=== PATIENT | female | born 1955 | race Caucasian/White ===

== ENCOUNTER → 2016-12-27 08:07 | Day surgery (SDC) | payer OTHER ==
--- NOTE | 2016-12-17 19:56 | HP ---
HISTORY AND PHYSICAL: DATE OF SURGERY: 12/27/16 PROCEDURE: Hardware removal, right foot. HISTORY OF PRESENT ILLNESS: Ms. Lord is a 61-year-old female who underwent an ORIF for a Lisfranc injury of the right foot. She has pain around the insertion site with a screw and has elected to p roceed with the hardware removal of the right foot. PAST MEDICAL HISTORY: She denies. PAST SURGICAL HISTORY: ORIF of the right foot, hernia repair, tubal ligation, tonsillectomy. CURRENT MEDICATIONS: 1. Mobic. 2. Xanax. 3. Lexapro. 4. Lysine. 5. Multivitamin. ALLERGIES: PENICILLIN. FAMILY HISTORY: Heart disease; lung, brain, and prostate cancer. SOCIAL HISTORY: She is a 61-year-old female. She lives with her . She works at [employer]. She smoked for 20 years, but quit 10 years ago. She does use occasional marijuana. REVIEW OF SYSTEMS: A complete 14-point review of systems was reviewed with the patient, all was neg ative or noncontributory. PHYSICAL EXAMINATION GENERAL: She is well developed, well nourished, in no acute distress. VITAL SIGNS: She stands 5 feet 5 inches tall, weighs 150 pounds, her blood pressure is 130/82, her h eart rate is 59. HEENT: She is normocephalic, atraumatic. NECK: Supple. No palpable lymph nodes. Trachea is midline. PULMONARY: The lungs are clear to auscultation bilaterally. No wheezes, rhonchi, or rales. CARDIO: Regular rate and rhythm. Strong S1, S2. No murmurs, gallops, or rubs. No peripheral edema . ABDOMEN: Soft, nontender, and nondistended. MUSCULOSKELETAL: Right lower extremity, the skin is intact. She has some tenderness over the inser tion site of the screw of the right foot. She has good capillary refill. 2+ dorsalis pedis pulses, intact sensation and her lower extremity muscle group strengths are intact at 5/5. NEUROLOGIC: She is alert and oriented x3. Cranial nerves II through XII are intact. ASSESSMENT AND PLAN: Ms. Lord is a 61-year-old female with complaints of right foot pain. She u nderwent an ORIF of the right foot for a Lisfranc injury. She has elected to proceed with hardware removal of the right foot. The surgery is scheduled for 12/27/[address] Vickers. She will see him back 10 to 14 days after the surgery. FER OROZCO [id number]/[facility] #: [id number]
[~2016-12-27 08:07] MED LIST: Buffered Lidocaine 1% SYR 3ML* 3 ML/SYR SYRINGE INTRADERM ONE; Bupivacaine 0.5% SDV PF* 30 ML VIAL ONE; Clindamycin 900 MG IVPREMIX(* 900 MG/50 ML SDV IV ONE; Midazolam* 1 MG/ML 5 ML VIAL (5 MG) ONE; Propofol* 10 MG/ML 20 ML BTL IV PUSH ONE; fentaNYL* 50 MCG/ML 2 ML VIAL (100 MCG VIAL) ONE
[2016-12-27 12:23] VITALS: BP 135/80
--- NOTE | 2016-12-27 23:11 | RAD ---
CPT II Codes: 6045F INDICATION: Hardware removal from the right foot Fluoroscopic services provided for referring physician. One spot image demonstrates localization of the syndesmosis screw between the first cuneiform and second metatarsal. 7.8 seconds of fluoroscopy time was used. IMPRESSION: Fluoroscopic services provided for referring physician.
--- NOTE | 2016-12-27 23:29 | OP ---
DATE OF OPERATION: 12/27/16 [facility] DATE OF : 55 SURGEON: Swapnil Vickers MD ECONOMIC SPECIALIST: Christie Barakat PA-C ANESTHESIOLOGIST: Emanuel Grayson MD ANESTHESIA: MAC PRE-OP DIAGNOSIS: Painful hardware, right mid foot, previous Lisfranc screw fixation. POST-OP DIAGNOSIS: Painful hardware, right mid foot, previous Lisfranc screw fixation. OPERATIVE PROCEDURE: Removal of screw, right mid foot. DESCRIPTION OF PROCEDURE: The patient was taken to the operating where a 1 cm longitudinal incision was made over the previous wound. In the mid portion of the wound, we located the head of the cortical screw, which was removed with a small fragment screw driver messenger. We then irrigated thoroughly closing with Vicryl and a small nylon suture and a compression dressing applied. [id number]/[facility] #: [id number] MTDD
== END | disposition home or self-care (01) ==
LOC: OR 08:07
PROVIDERS: ATTEND Orthopaedic Surgery
DX: T84.84XA Pain due to internal orthopedic prosthetic devices, implants and grafts, initial encounter (principal); Y83.1 Surgical operation with implant of artificial internal device as the cause of abnormal reaction of the patient, or of later complication, without mention of misadventure at the time of the procedure; S92.811S Other fracture of right foot, sequela; X58.XXXS Exposure to other specified factors, sequela; Y92.9 Unspecified place or not applicable
CPT/HCPCS: 76000; 88300; J2250; J2704; J3010

== ENCOUNTER 2017-04-22 14:48 | Emergency (ER) | payer OTHER ==
[2017-04-22 14:57] VITALS: BP 155/90
--- NOTE | 2017-04-22 15:53 | UC ---
Skin Complaint HPI - HPI Summary HPI Summary: Started getting raised itchy blistering rash on arms about a week ago after mowing the lawn. Also sleeps holding outdoor cat in her arms, wonders if the cat has been bringing something in. Some patches developing on legs, keeps getting new areas after 1 week. Very itchy, worried about spreading rash to other people. - History of Current Complaint Chief Complaint: UCRas Time Seen by Provider: 04/22/17 15:18 Stated Complaint: RASH Hx Obtained From: Patient ?: No Onset/Duration: Gradual Onset, Lasting Days Skin Exposure Onset/Duration: Days Ago Timing: Constant Onset Severity: Mild Current Severity: Moderate Location: Other - limbs, face Character: Pruritus, Redness, Raised Aggravating: Nothing Alleviating: Nothing Associated Signs & Symptoms: Positive: Rash - Allergy/Home Medications Allergies/Adverse Reactions: Allergies Allergy/AdvReac Type Severity Reaction Status Date / Time Penicillins Allergy Mild Hives Verified 04/22/17 14:57 ENVIRONMENTAL/SEASONAL Allergy COUGH WITH Uncoded 04/22/17 14:57 HAYFEVER HEAVY SMELLS Review of Systems Constitutional: Negative Skin: Rash Eyes: Negative ENT: Negative Respiratory: Negative Cardiovascular: Negative Gastrointestinal: Negative Genitourinary: Negative Motor: Negative Neurovascular: Negative Musculoskeletal: Negative Neurological: Negative Psychological: Negative All Other Systems Reviewed And Are Negative: Yes PMH/Surg Hx/FS Hx/Imm Hx Previously Healthy: Yes - Surgical History Surgical History: Yes Surgery Procedure, Year, and Place: UMBILICAL HERNIA REPAIR, [facility]. BILATERAL TUBAL LIGATION[place]. 2015 LEFT MIDDLE FINGER LACERATION REPAIR, [facility] [place]. RIGHT FOOT SURGERY, 02/2016, [facility]. TONSILECTOMY AT 16 - Family History Known Family History: Positive: Unknown - Social History Alcohol Use: None Substance Use Type: Marijuana Substance Use Comment - Amount & Last Used: LAST TIME 12/22/16 AM Smoking Status (MU): Former Smoker Type: Cigarettes Amount Used/How Often: 3-4 PPD X 14 YEARS Have You Smoked in the Last Year: No When Did the Patient Quit Smoking/Using Tobacco: 2006 Physical Exam Triage Information Reviewed: Yes Appearance: Well-Appearing, No Pain Distress, Well-Nourished Vital Signs: Initial Vital Signs Temp 98.2 F 04/22/17 14:53 Pulse 82 04/22/17 14:53 Resp 20 04/22/17 14:53 BP 155/90 04/22/17 14:53 Pulse Ox 99 04/22/17 14:53 Vital Signs Reviewed: Yes Eye Exam: Normal Eyes: Positive: Conjunctiva Clear ENT Exam: Normal ENT: Positive: Normal ENT inspection, Hearing grossly normal, Pharynx normal, TMs normal Dental Exam: Normal Neck exam: Normal Neck: Positive: Supple, Nontender, No Lymphadenopathy Respiratory Exam: Normal Respiratory: Positive: Chest non-tender, Lungs clear, Normal breath sounds, No respiratory distress, No accessory muscle use Cardiovascular Exam: Normal Cardiovascular: Positive: RRR, No Murmur Musculoskeletal Exam: Normal Musculoskeletal: Positive: ROM Intact Neurological Exam: Normal Neurological: Positive: Alert Psychological Exam: Normal Skin: Positive: rashes - bilat arms, L leg, R face; irreg clusters, vesicular Course/Dx - Diagnoses Provider Diagnoses: contact dermatitis Discharge - Discharge Plan Condition: Stable Disposition: HOME Prescriptions: Triamcinolone 0.1% CREAM(NF) [Kenalog Cream 0.1%(NF)] 1 applic TOPICAL BID #30 gm predniSONE TAB* [Deltasone TAB*] 50 mg PO DAILY #5 tab Patient Education Materials: Contact Dermatitis (ED) Referrals: Marce Sheridan DO [Primary Care Provider] - Additional Instructions: Call or return if you have significant worsening.
== END 2017-04-22 15:45 | disposition home or self-care (01) ==
LOC: UCEAST 14:48
DX: L25.9 Unspecified contact dermatitis, unspecified cause (principal); Z87.891 Personal history of nicotine dependence
CPT/HCPCS: 99212; G0463

== ENCOUNTER 2017-05-17 13:51 | Emergency (ER) | payer OTHER ==
[2017-05-17 14:00] VITALS: BP 122/77
--- NOTE | 2017-05-17 14:19 | UC ---
Dental HPI - HPI Summary HPI Summary: complaint of lower left dental pain that started approx 1 week ago has worsened over the last week hot and cold ,chewing makes the pain worsen taking tylenol and oragel with some relief denies fever and headache has appt with dentist tuesday05/24/17 - History of Current Complaint Chief Complaint: UCDentalProblem Stated Complaint: DENTAL COMPLAINT Time Seen by Provider: 05/17/17 14:06 Hx Obtained From: Patient - Allergies/Home Medications Allergies/Adverse Reactions: Allergies Allergy/AdvReac Type Severity Reaction Status Date / Time Penicillins Allergy Mild Hives Verified 04/22/17 14:57 Cephalexin [From Keflex] Allergy Hives Verified 05/17/17 14:00 ENVIRONMENTAL/SEASONAL Allergy COUGH WITH Uncoded 04/22/17 14:57 HAYFEVER HEAVY SMELLS Home Medications: Home Medications ALPRAZolam TAB* [Xanax TAB*] 0.25 mg PO Q6H PRN 05/17/17 [History Confirmed 09/23] PMH/Surg Hx/FS Hx/Imm Hx Previously Healthy: Yes Psychological History: Anxiety - Surgical History Surgical History: Yes Surgery Procedure, Year, and Place: UMBILICAL HERNIA REPAIR, [facility]. [place] 2015 LEFT MIDDLE FINGER LACERATION REPAIR, [facility] [place]. RIGHT FOOT SURGERY, 02/2016, [facility] [place]. TONSILECTOMY AT 16 - Family History Known Family History: Negative: Cardiac Disease, Hypertension, Diabetes - Social History Occupation: Employed Full-time Lives: With Family Alcohol Use: None Substance Use Type: Marijuana Substance Use Comment - Amount & Last Used: LAST TIME 12/22/16 AM Smoking Status (MU): Former Smoker Type: Cigarettes Amount Used/How Often: 3-4 PPD X 14 YEARS Have You Smoked in the Last Year: No When Did the Patient Quit Smoking/Using Tobacco: 2006 Review of Systems Constitutional: Negative Skin: Negative Eyes: Negative ENT: Dental Pain Respiratory: Negative Cardiovascular: Negative Gastrointestinal: Negative Genitourinary: Negative Motor: Negative Neurovascular: Negative Musculoskeletal: Negative Neurological: Negative Psychological: Negative All Other Systems Reviewed And Are Negative: Yes Physical Exam Triage Information Reviewed: Yes Appearance: No Pain Distress, Well-Nourished Vital Signs: Initial Vital Signs Temp 97.4 F 05/17/17 13:54 Pulse 75 05/17/17 13:54 Resp 20 05/17/17 13:54 BP 122/77 05/17/17 13:54 Pulse Ox 100 05/17/17 13:54 Vital Signs Reviewed: Yes Eyes: Positive: Conjunctiva Clear ENT: Positive: Pharynx normal, TMs normal Dental: Positive: Gross Decay/Caries @ - throughout, -19 Neck: Positive: No Lymphadenopathy Respiratory: Positive: Lungs clear, Normal breath sounds, No respiratory distress Cardiovascular: Positive: RRR, No Murmur, Pulses Normal Abdomen Description: Positive: Nontender, Soft Bowel Sounds: Positive: Present Musculoskeletal: Positive: No Edema Neurological: Positive: Alert Psychological Exam: Normal Skin Exam: Normal Dental Complaint Course/Dx - Course Course Of Treatment: exam completed. periodontal disease throughout tooth 18- 19 with decay gums around slight swelling. will rx for clinadmycin followup with dentist. pt refuses any pain medication and will take tylenol - Differential Dx/Diagnosis Differential Diagnosis/Dx: Dental Caries, Peridontic Disease Provider Diagnoses: dental pain/infection Discharge - Discharge Plan Condition: Stable Disposition: HOME Prescriptions: Clindamycin Cap(NF) [Cleocin 300 mg Cap(NF)] 300 mg PO TID #30 cap Patient Education Materials: Toothache (ED) Referrals: Marce Sheridan DO [Primary Care Provider] - Additional Instructions: Please start antibiotic as directed keep your dental appointment Increase fluids and rest Take acetaminophen or ibuprofen for fever or pain Please review your discharge instructions. If your symptoms do not improve please call your primary care provider or return to urgent care.
== END 2017-05-17 14:45 | disposition home or self-care (01) ==
LOC: UCEAST 13:51
DX: K04.7 Periapical abscess without sinus (principal); Z87.891 Personal history of nicotine dependence
CPT/HCPCS: 99212; G0463

== ENCOUNTER 2019-09-16 08:24 | Emergency (ER) | payer OTHER ==
[2019-09-16 08:33] VITALS: BP 133/80
--- NOTE | 2019-09-16 09:13 | UC ---
Back Pain HPI - HPI Summary HPI Summary: 6 days of L sided mid lateral back pain, no known injury but does repetitive lifting at work pain worse with deep breaths or lifting L arm away from body or reaching forward - History of Current Complaint Chief Complaint: UCUpperExtremity Stated Complaint: UPPER BACK PAIN Time Seen by Provider: 09/16/19 08:37 Hx Obtained From: Patient Onset/Duration: Gradual Onset Timing: Constant Severity Initially: Mild Severity Currently: Moderate Pain Intensity: 7 Back Pain: Is Discrete @ - L mid lateral Aggravating Factor(s): Movement, Lifting Alleviating Factor(s): Rest, Position, Other - aleve (today) Associated Signs And Symptoms: Positive: Negative. Negative: Swelling, Redness , Bruising, Weakness, Abdominal Pain, Flank Pain - Allergies/Home Medications Allergies/Adverse Reactions: Allergies Allergy/AdvReac Type Severity Reaction Status Date / Time cephalexin [From Keflex] Allergy Hives Verified 09/16/19 08:34 Penicillins Allergy Hives Verified 04/26/19 07:37 ENVIRONMENTAL/SEASONAL Allergy COUGH WITH Uncoded 04/26/19 07:37 HAYFEVER HEAVY SMELLS PMH/Surg Hx/FS Hx/Imm Hx Previously Healthy: Yes Psychological History: Anxiety, Depression - Surgical History Surgical History: Yes Surgery Procedure, Year, and Place: hernia and right foot - Family History Known Family History: Positive: Unknown, Non-Contributory Negative: Cardiac Disease, Hypertension, Diabetes - Social History Occupation: Employed Full-time - [employer] Lives: With Family Alcohol Use: None Substance Use Type: Marijuana Substance Use Comment - Amount & Last Used: LAST TIME 12/22/16 AM Smoking Status (MU): Former Smoker Type: Cigarettes Amount Used/How Often: 3-4 PPD X 14 YEARS Have You Smoked in the Last Year: No When Did the Patient Quit Smoking/Using Tobacco: 2006 Review of Systems All Other Systems Reviewed And Are Negative: Yes Constitutional: Positive: Negative. Negative: Fever Skin: Positive: Negative. Negative: Rash, Bruising Respiratory: Positive: Negative. Negative: Shortness Of Breath, Cough Cardiovascular: Positive: Negative. Negative: Chest Pain Gastrointestinal: Positive: Negative. Negative: Abdominal Pain Neurological: Positive: Negative. Negative: Headache Psychological: Positive: Negative Is Patient Immunocompromised?: No Physical Exam Triage Information Reviewed: Yes Appearance: Well-Appearing, No Pain Distress, Well-Nourished Vital Signs: Initial Vital Signs Temp 98 F 09/16/19 08:30 Pulse 90 09/16/19 08:30 Resp 17 09/16/19 08:30 BP 133/80 09/16/19 08:30 Pulse Ox 98 09/16/19 08:30 Vital Signs Reviewed: Yes Neck exam: Normal Neck: Positive: Supple Respiratory Exam: Normal Respiratory: Positive: Chest non-tender, Lungs clear Cardiovascular Exam: Normal Cardiovascular: Positive: RRR Abdominal Exam: Normal Abdomen Description: Positive: Nontender, No Organomegaly, Soft Bowel Sounds: Positive: Present Musculoskeletal: Positive: Strength Intact, ROM Intact, No Edema, Other: - no pain with palpation but complains of pain when lifts L arm forward or above head Neurological Exam: Normal Neurological: Positive: Alert Psychological Exam: Normal Skin Exam: Normal Skin: Negative: Rashes Back Pain Course/Dx - Differential Dx/Diagnosis Differential Diagnosis/HQI/PQRI: Fracture, Renal Colic, Strain, Sprain Provider Diagnosis: Muscle strain Discharge ED - Sign-Out/Discharge Documenting (check all that apply): Patient Departure All imaging exams completed and their final reports reviewed: No Studies - Discharge Plan Condition: Good Disposition: HOME Patient Education Materials: Muscle Strain (ED) Referrals: Marce Sheridan DO [Primary Care Provider] - 3 Days (If no better) Additional Instructions: use Aleve as directed for pain over next 2-3 days use a heating pad to area of pain several times a day return if you develop new or worsening symptoms - Billing Disposition and Condition Condition: GOOD Disposition: Home
== END 2019-09-16 09:30 | disposition home or self-care (01) ==
LOC: UCEAST 08:24
DX: S46.912A Strain of unspecified muscle, fascia and tendon at shoulder and upper arm level, left arm, initial encounter (principal); Z88.0 Allergy status to penicillin; Z88.1 Allergy status to other antibiotic agents; Z91.09 Other allergy status, other than to drugs and biological substances; Z87.891 Personal history of nicotine dependence; X50.3XXA Overexertion from repetitive movements, initial encounter; Y92.9 Unspecified place or not applicable
CPT/HCPCS: 81003; 99211; G0463

== ENCOUNTER 2023-04-01 13:23 | Observation (INO) ==
[2023-04-01 14:12] LABS: ABS Basophils 0.1 10^3/uL (0.0-0.1); ABS Eosinophils 0.2 10^3/uL (0.0-0.5); ABS Monocytes 0.7 10^3/uL (0.0-0.9); ABS Neutrophils 7.6 10^3/uL (1.5-7.6); Eosinophil % 1.9 %; Hematocrit 39.6 % (35-45); Hemoglobin 13.3 g/dL (11.5-14.3); Lymphocyte % 19.3 %; Mean Corpuscular Hemoglobin 31.1 pg (27-33); Mean Corpuscular Hgb Conc 33.6 g/dL (31-36); Mean Corpuscular Volume 92.6 fL (80-97); Mean Platelet Volume 8.7 fL (7.5-11.2); Platelet Count 339 10^3/uL (150-450); Red Blood Count 4.28 10^6/uL (3.63-4.92); Red Cell Distribution Width 13.6 % (12-17); White Blood Count 10.6 10^3/uL (3.8-11.8)
[2023-04-01 14:26] LABS: Urine Appearance Clear; Urine Bilirubin Negative (Negative); Urine Blood Negative (Negative); Urine Color Colorless; Urine Glucose Negative (Negative); Urine Ketones Negative (Negative); Urine Nitrite Negative (Negative); Urine Protein Negative (Negative); Urine Specific Gravity 1.001 (1.002-1.030); Urine Urobilinogen Negative (Negative)
[2023-04-01 15:06] LABS: ALT 16 U/L (7-52); AST 19 U/L (13-39); Albumin 4.4 g/dL (3.2-5.2); Albumin/Globulin Ratio 1.7 (1-3); Alcohol, S < 13 mg/dL (<13); Alkaline Phosphatase 57 U/L (35-149); Anion Gap 8 mmol/L (2-16); Blood Urea Nitrogen 12 mg/dL (6-24); CO2 Carbon Dioxide 23 mmol/L (22-32); Calcium 9.2 mg/dL (8.6-10.3); Chloride 107 mmol/L (101-111); Globulin 2.6 g/dL (2-4); Glucose 131 mg/dL (70-100); Potassium 3.9 mmol/L (3.5-5.0); Sodium 138 mmol/L (135-145); eGFR CKD-EPI 94.1 (>60)
[2023-04-01 15:10] LABS: Urine Benzodiazepine Screen None Detected (None Detect); Urine Cannabinoids Screen Presumptive Positive (None Detect); Urine Opiates Screen None Detected (None Detect)
[2023-04-01] MEDS ORDERED: LORazepam 2 mg VIAL 1 ml IV PUSH ONE (18:47)
[2023-04-01] MEDS ORDERED: Lorazepam PYXIS KEY PRN (18:47)
[2023-04-01 18:54] LABS: TSH Ultra Thyroid Stim Horm 2.03 mcIU/mL (0.34-5.60)
[2023-04-01] MEDS ORDERED: Enoxaparin 40 MG/0.4 ML SYR SUBCUT SCH (19:00)
[2023-04-01 19:05] LABS: Vitamin B12 > 1450 pg/mL (180-914)
[2023-04-02 09:50] VITALS: BP 124/79
== END 2023-04-02 11:00 | disposition home or self-care (01) ==
LOC: EDHOLD 13:23 → ED 13:23 → EDHOLD 20:50 → MED 21:59
PROVIDERS: ADMIT Internal Medicine; ATTEND Internal Medicine